=== PATIENT | female | born 1955 | race Caucasian/White ===

== ENCOUNTER → 2024-12-18 | Outpatient (CLI) | payer MEDICARE, OTHER ==
[2024-12-18 13:57] LABS: African American GFR (CKD) >90 (>60 ml/min/1.73 sqM); Blood Urea Nitrogen 15 mg/dL (7-17); Non-African American GFR(CKD) >90 (>60 ml/min/1.73 sqM)
--- NOTE | 2024-12-18 16:25 | CT ---
EXAMINATION TYPE: CT chest w con CT DLP: 637.60 mGycm, Automated exposure control for dose reduction was used. DATE OF EXAM: 12/18/2024 2:30 PM COMPARISON: Chest radiograph 11/08/2024 CLINICAL INDICATION:Female, 68 years old with history of J84.9 INTERSTITIAL PULMONARY DISEASE, UNSPEC IFIED; PHH, COUGH AND SOB TECHNIQUE: Multiple axial images were obtained through the chest following the administration of 100 cc of Isovue 300. . Coronal and sagittal reformats reviewed. FINDINGS: LUNGS/ PLEURA: No pleural effusion or pneumothorax. Patchy nodular consolidative opacities with periv ascular distribution within the right upper lobe. Left lower lobe of nodular opacity measuring up to 7 mm (series 4, image 44). Additional few scattered pulmonary nodular opacities within the lingula an d right upper lobe. There is some minimal right middle lobe and lingular opacities with bronchiectasi s. AIRWAY: Patent and unremarkable.. HEART: Size within normal limits.No pericardial effusion. MEDIASTINUM: No evidence of adenopathy. VASCULATURE: No aortic aneurysm. MUSCULOSKELETAL: No acute osseous abnormalities. Minimal multilevel degenerative disease. No aggressi ve osseous lesion. SOFT TISSUES/LYMPH NODES: Unremarkable. LOWER NECK: No significant findings. UPPER ABDOMEN: Small hiatal hernia. Diffuse hepatectomy appearance of the liver. Exophytic left renal upper pole 2.3 cm cyst. IMPRESSION: 1. Patchy nodular consolidative opacities with perivascular distribution within the right upper lobe . Additional few scattered nodular opacities throughout the lungs. Findings are favored to represent an infectious/inflammatory process. Underlying malignancy is not entirely excluded. Follow-up CT ches t in 3-6 months is recommended. 2. Hepatic steatosis. [facility], , 12/18/2024 4:22 PM
== END | disposition home or self-care (01) ==
LOC: RADCTMAIN 12:51
PROVIDERS: ATTEND Internal Medicine
DX: R91.1 Solitary pulmonary nodule (principal); K76.0 Fatty (change of) liver, not elsewhere classified; N28.1 Cyst of kidney, acquired; K44.9 Diaphragmatic hernia without obstruction or gangrene; J47.9 Bronchiectasis, uncomplicated; J84.9 Interstitial pulmonary disease, unspecified
CPT/HCPCS: 82565; 84520; 71260; 36415; Q9967

== ENCOUNTER 2025-05-10 11:05 | Day surgery (SDC) | payer MEDICARE, OTHER ==
[2025-05-09 12:30] VITALS: BMI 43.2
[~2025-05-10 11:05] MED LIST: LACTATED RINGERS 1,000 ML IV SCH
[2025-05-10] MEDS: LACTATED RINGERS 1,000 ML IV SCH (11:33)
[2025-05-10] MEDS: ONDANSETRON 4 MG/2 ML VIAL IVP STA (11:48)
[2025-05-10] MEDS ORDERED: PROPOFOL 10 MG/ML 20 ML VIAL IV ONE (12:09)
[2025-05-10] MEDS ORDERED: MIDAZOLAM 2 MG/2 ML VIAL ONE (12:09)
[2025-05-10] MEDS ORDERED: LIDOCAINE 1% INJ 10MG/ML (20 ML MDV) ONE (12:09)
[2025-05-10] MEDS ORDERED: fentaNYL (PF) 50 MCG/ML 2 ML AMP ONE (12:09)
[2025-05-10] MEDS ORDERED: PHENYLEPHRINE 10 MG/ML VIAL ONE (12:09)
[2025-05-10] MEDS ORDERED: SUCCINYLCHOLINE CHLORIDE 200 MG/10 ML VIAL IV ONE (12:09)
[2025-05-10] MEDS: LACTATED RINGERS 1,000 ML IV ONE (12:54)
[2025-05-10] MEDS: IV FLUID CONTINUATION 1,000 ML IV ONE (13:04)
[2025-05-10 13:29] VITALS: TEMP 96.9
--- NOTE | 2025-05-10 13:29 | FL ---
EXAMINATION TYPE: FL bronchoscopy DATE OF EXAM: 05/10/2025 1:19 PM COMPARISON: Pre Operative Images if available both CT/MRI or plain film CLINICAL INDICATION: Female, 69 years old with history of BRONCH WITH BIOPSY, PERSISTANT RUL PNEUMONI A; TECHNIQUE: FL bronchoscopy, multiple fluoroscopic images provided for procedure. DAP: 1.4075 mGym2 Gycm2 uGym2 cGycm2 or equivalent. FINDINGS: ION bronchoscopy images demonstrate bronchoscope terminating in the lung. No immediate complications identified, no pneumothorax identified. IMPRESSION: 1. No evidence for intraoperative complication. 2. Please see the operative/procedural note for further details. [facility], , 05/10/2025 1:27 PM
--- NOTE | 2025-05-10 13:31 | XR ---
EXAMINATION TYPE: XR chest 1V portable DATE OF EXAM: 05/10/2025 1:25 PM COMPARISON: CT plain film CLINICAL INDICATION: Female, 69 years old with history of bronch; [facility] TECHNIQUE: XR chest 1V portable Frontal view of the chest. FINDINGS: Lungs/Pleura: Right midlung airspace opacities. There is no evidence of pleural effusion, focal conso lidation, or pneumothorax. Pulmonary vascularity: Unremarkable. Heart/mediastinum: Cardiomediastinal silhouette is unremarkable. Musculoskeletal: No acute osseous pathology. Other findings: None IMPRESSION: Right midlung airspace opacities no evidence for pneumothorax. [facility], , 05/10/2025 1:29 PM
[2025-05-10 14:02] VITALS: BP 118/57; PULSE 75; RESP 18
--- NOTE | 2025-05-10 18:36 | OP ---
OPERATIVE REPORT DATE OF SERVICE : OPERATIVE REPORT: Bronchoscopy, suctioning of endobronchial mucous plugs in the right upper lobe anterior segment, and bronchoalveolar lavage of the anterior segment of the right upper lobe as well as the transbronchial biopsies of lateral subsegment of the anterior upper lobe using fluoroscopy, multiple transbronchial biopsies were done. PREOPERATIVE DIAGNOSIS: Persistent right upper lobe consolidation/pneumonia. POSTOPERATIVE DIAGNOSIS: Postobstructive pneumonitis, secondary to mucus plugging involving the bronchus of the anterior segment of the right upper lobe. ANESTHESIA USED: General anesthesia. DESCRIPTION OF PROCEDURE: The patient was brought into the bronchoscopy suite, she was intubated by [employer], placed on mechanical ventilation. Then, the bronchoscope was inserted through the endotracheal tube/adapter. Neuro examination was done of airways including the left side, which was normal. Hilda was normal. The right lower lobe and right middle lobe were normal. However, there was a mucus plug noted in the anterior segment of the right upper lobe. The mucus plug was suctioned, and bronchoalveolar lavage was done of the area that was occluded by the right upper lobe endobronchial mucous plug. Anyway's, multiple transbronchial biopsies were done of the right upper lobe infiltrate that was noted on fluoroscopy, and BAL of the right upper lobe was also done/anterior segment and all was sent for different diagnostic studies. Procedure was well- tolerated. No complications. Chest x-ray was ordered postoperatively. Findings were discussed with the at that point. MMODL / IJN: [id number] /
[2025-05-10 21:24] LABS: Appearance,BF Blood Tinged (Clear); RBC, Body Fluid 4325 /UL (0-2000)
[2025-05-10 22:10] LABS: Appearance,BF Turbid (Clear); RBC, Body Fluid 330 /UL (0-2000)
[2025-05-11 13:19] LABS: Nucleated Cells, Body Fluid 37 /UL
[2025-05-11 13:21] LABS: Nucleated Cells, Body Fluid 360 /UL
== END 2025-05-10 14:17 | disposition home or self-care (01) ==
LOC: ORWHC2ENDO 11:05
PROVIDERS: ATTEND Internal Medicine
DX: J98.4 Other disorders of lung (principal); T17.590A Other foreign object in bronchus causing asphyxiation, initial encounter; R91.8 Other nonspecific abnormal finding of lung field; E03.9 Hypothyroidism, unspecified; E78.5 Hyperlipidemia, unspecified; E66.01 Morbid (severe) obesity due to excess calories; Z68.41 Body mass index [BMI] 40.0-44.9, adult; I10 Essential (primary) hypertension; L40.50 Arthropathic psoriasis, unspecified; Z87.891 Personal history of nicotine dependence; Z88.0 Allergy status to penicillin; Z79.890 Hormone replacement therapy
CPT/HCPCS: 88108; 88305; 89050; 87070; 87205; 87116; 87102; 87206; 71045; 31628; 31624; J2250; J0330; J2405; J2003; J3010; J2704; J2371